=== PATIENT | female | born 1995 | race Caucasian/White ===

== ENCOUNTER 2022-02-16 15:38 | Emergency (ER) | payer BC ==
[~2022-02-16] VITALS: Wt 71.2 kg
[~2022-02-16 15:38] MED LIST: AMOXICILLIN500 MG PO; AUGMENTIN 400 M1 CTB PO; BACTRIM DS 8001 TA1 PO; CLARITIN10 MG PO; FLONASE 0.05% 121 EA NAS; FLONASE ALLERG9.9 ML NAS; KEFLEX500 MG PO; MOTRIN800 MG PO; NKHM PO; PREDNISONE10 MG PO; TYLENOL W/CODEI1 TA4 PO; ZITHROMAX Z PA250 MG PO; ZOFRAN ODT4 MG SL; ZYRTEC10 MG PO
[2022-02-16 15:53] VITALS: BP 118/67
[2022-02-16] MEDS ORDERED: FLONASE ALLERG9.9 ML NAS (17:26)
[2022-02-16] MEDS ORDERED: CORTISPORIN SUS10 ML OT (17:26)
[2022-02-16] MEDS ORDERED: AMOXICILLIN500 M2 PO (17:26)
== END 2022-02-16 17:57 | disposition home or self-care (01) ==
LOC: ED 15:38
DX: H66.91 Otitis media, unspecified, right ear (principal); H60.91 Unspecified otitis externa, right ear

== ENCOUNTER 2023-08-30 16:44 | Emergency (ER) | payer OTHER ==
[~2023-08-30] VITALS: Ht 160 cm; Wt 78.9 kg
[~2023-08-30 16:44] MED LIST changes: +AMOXICILLIN500 M2 PO; +CORTISPORIN SUS10 ML OT
[2023-08-30 16:52] VITALS: BP 132/77
[2023-08-30] MEDS ORDERED: CLINDAMYCIN HC300 MG PO (17:14)
[2023-08-30] MEDS ORDERED: Lidocaine Hydrochloride 15 ML UDC PO STA (17:29)
[2023-08-30] MEDS ORDERED: BENZOCAINE 20% 11.9 GM GEL T STA (17:29)
== END 2023-08-30 17:40 | disposition home or self-care (01) ==
LOC: ED 16:44
DX: K08.89 Other specified disorders of teeth and supporting structures (principal); Z79.2 Long term (current) use of antibiotics

== ENCOUNTER 2023-11-20 12:54 | Emergency (ER) | payer OTHER ==
[~2023-11-20] VITALS: Ht 160 cm; Wt 78.9 kg
[~2023-11-20 12:54] MED LIST changes: +CLINDAMYCIN HC300 MG PO
[2023-11-20 12:59] VITALS: BP 134/90
[2023-11-20] MEDS ORDERED: SODIUM CHLORIDE 0.9% 1,000 ML IV ONE (13:10)
[2023-11-20] MEDS ORDERED: Ondansetron Hydrochloride 4 MG/2 ML VIAL IV ONE (13:10)
[2023-11-20 13:19] LABS: BASO # 0.1 10*3/uL (0.0-0.1); BASO % 0.6 % (0.0-1.0); EOS # 0.4 10*3/uL (0.0-0.4); EOS % 3.8 % (1.0-4.0); HEMATOCRIT 39.2 % (37.0-47.0); LYMPH # 2.2 10*3/uL (1.3-4.4); LYMPH % 23.9 % (27.0-41.0); MEAN CELL VOLUME 81.7 fl (81.0-99.0); MEAN CORPUSCULAR HGB CONC 30.6 g/dl (33.0-37.0); MONO # 0.5 10*3/uL (0.1-1.0); MONO % 5.3 % (3.0-9.0); NEUT # 6.1 10*3/uL (2.3-7.9); PLATELET COUNT AUTOMATED 383 10*3/uL (130-400); RED CELL DISTRI WIDTH 13.9 % (0-14.5); WHITE BLOOD COUNT 9.2 10*3/uL (4.8-10.8)
[2023-11-20 13:37] LABS: BUN 11 mg/dl (9-23); CHLORIDE 102 mmol/L (98-107); LIPASE 41 U/L (12-53); POTASSIUM 3.9 mmol/L (3.4-5.1); SGPT/ALT 17 U/L (5-49)
[2023-11-20 15:13] LABS: BILIRUBIN Negative (Negative); BLOOD Negative (Negative); CLARITY Clear (Clear); COLOR Yellow (Yellow); GLUCOSE Negative (Negative); KETONE Negative (Negative); LEUKO ESTERASE Negative (Negative); NITRITE Negative (Negative); UROBILINOGEN 0.2 E.U./dl (0.0-1.0)
[2023-11-20 15:39] LABS: BACTERIA 1+; MUCOUS 1+
[2023-11-20] MEDS ORDERED: ONDANSETRON4 MG SL (16:04)
== END 2023-11-20 16:10 | disposition home or self-care (01) ==
LOC: ED 12:54
PROVIDERS: Nurse Practitioner Family
DX: A08.4 Viral intestinal infection, unspecified (principal); R11.2 Nausea with vomiting, unspecified

== ENCOUNTER → 2024-02-02 | Outpatient (CLI) | payer OTHER ==
[~2024-02-02] MED LIST changes: +ONDANSETRON4 MG SL
[2024-02-02 10:03] LABS: BASO # 0.1 10*3/uL (0.0-0.1); BASO % 0.8 % (0.0-1.0); EOS # 0.6 10*3/uL (0.0-0.4); EOS % 7.6 % (1.0-4.0); HEMATOCRIT 38.7 % (37.0-47.0); LYMPH # 2.4 10*3/uL (1.3-4.4); LYMPH % 32.3 % (27.0-41.0); MEAN CELL VOLUME 80.8 fl (81.0-99.0); MEAN CORPUSCULAR HGB 25.1 pg (27.0-31.0); MEAN PLATELET VOLUME 9.7 fl (9.6-12.3); MONO # 0.4 10*3/uL (0.1-1.0); MONO % 5.4 % (3.0-9.0); NEUT % 53.5 % (47.0-73.0); PLATELET COUNT AUTOMATED 360 10*3/uL (130-400); RED BLOOD COUNT 4.79 10*6/uL (4.10-5.10); RED CELL DISTRI WIDTH 14.6 % (0-14.5); WHITE BLOOD COUNT 7.5 10*3/uL (4.8-10.8)
[2024-02-02 10:32] LABS: ALKALINE PHOSPHATASE 84 U/L (46-116); BUN 7 mg/dl (9-23); CHLORIDE 104 mmol/L (98-107); POTASSIUM 3.7 mmol/L (3.4-5.1); SGPT/ALT 16 U/L (5-49); TOTAL PROTEIN 7.5 gm/dL (6.0-8.0)
== END | disposition home or self-care (01) ==
LOC: LAB 09:49
PROVIDERS: ATTEND Nurse Practitioner Family
DX: L40.4 Guttate psoriasis (principal)

== ENCOUNTER → 2024-02-04 | Outpatient (CLI) | payer OTHER ==
[2024-02-07 03:06] LABS: TB1 Ag VALUE 0.05 IU/mL (.)
== END | disposition home or self-care (01) ==
LOC: LAB 11:38
PROVIDERS: ATTEND Nurse Practitioner Family
DX: L40.4 Guttate psoriasis (principal)

== ENCOUNTER 2024-07-01 04:22 | Emergency (ER) | payer OTHER ==
[~2024-07-01] VITALS: Ht 157.4 cm; Wt 79.4 kg
[2024-07-01 04:35] VITALS: BP 115/41
[2024-07-01] MEDS ORDERED: Ketorolac Tromethamine 60 MG/2 ML VIAL IM ONE (04:40)
[2024-07-01] MEDS ORDERED: METHOCARBAMOL 500 MG TAB PO ONE (04:40)
[2024-07-01] MEDS ORDERED: NAPROXEN250 MG PO (04:42)
[2024-07-01] MEDS ORDERED: METHOCARBAMOL500 M1 PO (04:42)
== END 2024-07-01 04:57 | disposition home or self-care (01) ==
LOC: ED 04:22
DX: S39.012A Strain of muscle, fascia and tendon of lower back, initial encounter (principal); X58.XXXA Exposure to other specified factors, initial encounter; Y93.89 Activity, other specified; Y92.89 Other specified places as the place of occurrence of the external cause; Y99.8 Other external cause status

== ENCOUNTER 2025-02-27 17:35 | Emergency (ER) | payer OTHER ==
[~2025-02-27] VITALS: Ht 160 cm; Wt 75.7 kg
[~2025-02-27 17:35] MED LIST changes: +METHOCARBAMOL500 M1 PO; +NAPROXEN250 MG PO
[2025-02-27 18:23] VITALS: BP 104/59
== END 2025-02-27 18:56 | disposition home or self-care (01) ==
LOC: ED 17:35
DX: H93.92 Unspecified disorder of left ear (principal)